=== PATIENT | female | born 1975 | race Native Hawaiian/Other Pacific Islander ===

== ENCOUNTER → 2019-09-13 | Outpatient (CLI) | payer BC | LOC: LABWHC1 15:13 | PROVIDERS: ATTEND Obstetrics & Gynecology | DX: Z34.81 Encounter for supervision of other normal pregnancy, first trimester (principal); Z3A.00 Weeks of gestation of pregnancy not specified | CPT/HCPCS: 36415; 84702 ==

== ENCOUNTER 2019-09-24 09:37 | Emergency (ER) | payer BC ==
[2019-09-24 10:06] VITALS: RESP 18
[2019-09-24] MEDS ORDERED: MORPHINE SULFATE 4 MG/ML SYRINGE IV STA (10:32)
[2019-09-24] MEDS ORDERED: SODIUM CHLORIDE 0.9% 1,000 ML IV ONE (10:32)
--- NOTE | 2019-09-24 10:47 | ED ---
General Adult HPI - General Chief complaint: Vaginal Bleeding Stated complaint: miscarriage/bleeding Time Seen by Provider: 09/24/19 10:15 Source: patient, RN notes reviewed, old records reviewed Mode of arrival: wheelchair Limitations: no limitations - History of Present Illness Initial comments: This is a 44-year-old female presents today with a miscarriage was started on Friday. Patient reports that she follow-up with her [employer], who told her that her fetus on ultrasound on Friday measured about 6 weeks when her last muscle. Stated her to be 11 weeks. She reports that she is a female. Patient states that she was told that they could offer her medication at that time to help further along the miscarriage however Patient declined this at that time. Patient states that she's had prolonged bleeding, swelling through multiple pads an hour complaining of severe cramping. Patient reports that the cramping and bleeding got worse on . Patient reports she's had a previous D&C for one for last miscarriages. Her [employer] is Dr. Whitmore. - Related Data Home Medications Medication Instructions Recorded Confirmed Citalopram Hydrobromide [CeleXA] 40 mg PO HS 09/24/19 09/24/19 Dextroamphetamine/Amphetamine 30 mg PO DAILY 09/24/19 09/24/19 [Adderall Xr] Folic Acid 1 mg PO HS 09/24/19 09/24/19 Ibuprofen [Motrin Ib] 400 mg PO ONCE 09/24/19 09/24/19 Allergies Allergy/AdvReac Type Severity Reaction Status Date / Time ciprofloxacin [From Cipro] Allergy Hallucinati Verified 09/24/19 10:54 ons Review of Systems ROS Statement: Those systems with pertinent positive or pertinent negative responses have been documented in the HPI. ROS Other: All systems not noted in ROS Statement are negative. Past Medical History Additional Past Medical History / Comment(s): Bleeding ulcer, iron infusions, History of Any Multi-Drug Resistant Organisms: None Reported Past Surgical History: Appendectomy Additional Past Surgical History / Comment(s): Breast mass removed both breast. Past Psychological History: ADD/ADHD, Anxiety, Depression Smoking Status: Current every day smoker Past Alcohol Use History: Occasional Past Drug Use History: None Reported General Exam - General Exam Comments Initial Comments: Pleasant 44-year-old female. mild to moderate discomfort with cramping. Limitations: no limitations Head exam: Present: atraumatic, normocephalic, normal inspection Eye exam: Present: normal appearance, PERRL, EOMI. Absent: scleral icterus, conjunctival injection, periorbital swelling ENT exam: Present: normal exam, mucous membranes moist Cardiovascular Exam: Present: regular rate, normal rhythm, normal heart sounds. Absent: systolic murmur, diastolic murmur, rubs, gallop, clicks GI/Abdominal exam: Present: soft, normal bowel sounds. Absent: distended, tenderness, guarding, rebound, rigid External exam: Present: normal external exam Speculum exam: Present: vaginal bleeding (moderate amount of fist sized clots. ). Absent: normal speculum exam Extremities exam: Present: normal inspection, full ROM, normal capillary refill. Absent: tenderness, pedal edema, joint swelling, calf tenderness Neurological exam: Present: alert, oriented X3, CN II-XII intact Course Vital Signs 09/24/19 09/24/19 10:02 13:27 Temperature 99.0 F 97.8 F Pulse Rate 99 75 Respiratory 18 18 Rate Blood Pressure 126/89 119/70 O2 Sat by Pulse 99 98 Oximetry - Reevaluation(s) Reevaluation #1: 09/24/19 12:54 Discussed the case with Dr. Whitmore. Recommended Patient in follow-up next week as there is nothing retained in her uterus at this time she is 6 expect to have further bleeding throughout the weekend. Discussed that we can discharge Patient with a short course of intermittent injury and pain medicine the meantime. The Patient will have a repeat CBC. All questions were answered. Medical Decision Making - Medical Decision Making 44-year-old female presents today with miscarriage, vaginal bleeding. Patient reports that she was seen by her [employer] earlier this week, had an ultrasound that showed a nonviable IUP. At this time Patient does have a moderate amount of bleeding noted vaginal vault. Hemoglobin is stable. At this time patient's case was discussed with on-call [employer] Dr. Whitmore and Dr. Davis. Recommended the Patient follow-up outpatient. Ultrasound shows no retained products of conception. Discussed unlikely needing D&C at this time. Patient is agreeable treatment plan will comply. Return parameters were discussed. - Lab Data Result diagrams: 09/24/19 10:44 09/24/19 10:44 Lab Results 09/24/19 09/24/19 09/24/19 Range/Units 10:44 10:44 10:44 WBC 10.7 H (3.8-10.6) k/uL RBC 4.30 (3.80-5.40) m/uL Hgb 13.5 (11.4-16.0) gm/dL Hct 39.7 (34.0-46.0) % MCV 92.3 (80.0-100.0) fL MCH 31.4 (25.0-35.0) pg MCHC 34.1 (31.0-37.0) g/dL RDW 12.1 (11.5-15.5) % Plt Count 282 (150-450) k/uL Neutrophils % 76 % Lymphocytes % 16 % Monocytes % 5 % Eosinophils % 1 % Basophils % 0 % Neutrophils # 8.1 H (1.3-7.7) k/uL Lymphocytes # 1.7 (1.0-4.8) k/uL Monocytes # 0.5 (0-1.0) k/uL Eosinophils # 0.1 (0-0.7) k/uL Basophils # 0.0 (0-0.2) k/uL Sodium 137 (137-145) mmol/L Potassium 4.3 (3.5-5.1) mmol/L Chloride 109 H (98-107) mmol/L Carbon Dioxide 19 L (22-30) mmol/L Anion Gap 9 mmol/L BUN 12 (7-17) mg/dL Creatinine 0.57 (0.52-1.04) mg/dL Est GFR (CKD-EPI)AfAm >90 (>60 ml/min/1.73 sqM) Est GFR (CKD-EPI)NonAf >90 (>60 ml/min/1.73 sqM) Glucose 89 (74-99) mg/dL Calcium 9.0 (8.4-10.2) mg/dL Total Bilirubin 0.5 (0.2-1.3) mg/dL AST 28 (14-36) U/L ALT 35 (9-52) U/L Alkaline Phosphatase 55 (38-126) U/L Total Protein 6.4 (6.3-8.2) g/dL Albumin 3.7 (3.5-5.0) g/dL HCG, Quant 7245.7 mIU/mL Blood Type O Positive Blood Type Recheck O Pos Bld Type Recheck Status No Antibody Screen NEGATIVE Spec Expiration Date 09/27/2019 - 9080 - Radiology Data Radiology results: report reviewed Findings consistent with spontaneous based off of patient's history to us to visualize and treated would be in the differential based on ultrasound findings only. Confirmed with hCG. No evidence of intrauterine . There is a fibroid measuring 5.2 x 4.9 x 4.8 cm. Disposition Clinical Impression: Complete miscarriage Disposition: HOME SELF-CARE Condition: Good Instructions (If sedation given, give patient instructions): Miscarriage (ED) Additional Instructions: Please use medication as discussed. Patient is advised to follow-up next week with [employer]'s partners. Recheck CBC at that time as well. Please follow up with family doctor if symptoms have not improved over the next two days. Please return to the emergency room if your symptoms increase or worsen or for any other concerns. Is patient prescribed a controlled substance at d/c from ED?: No Referrals: Christine Reyes DO [Primary Care Provider] - 1-2 days Mario Pelayo DO [Doctor of Osteopathic Medicine] - 1-2 days Time of Disposition: 12:55
[2019-09-24 10:53] LABS: Basophils % (A) 0 %; Eosinophils # (A) 0.1 k/uL (0-0.7); Eosinophils % (A) 1 %; HCT 39.7 % (34.0-46.0); HGB 13.5 gm/dL (11.4-16.0); Lymphocytes # (A) 1.7 k/uL (1.0-4.8); Lymphocytes % (A) 16 %; MCH 31.4 pg (25.0-35.0); MCHC 34.1 g/dL (31.0-37.0); MCV 92.3 fL (80.0-100.0); Mean Platelet Volume 6.7; Monocytes # (A) 0.5 k/uL (0-1.0); Monocytes % (A) 5 %; Neutrophils # (A) 8.1 k/uL (1.3-7.7); Neutrophils % (A) 76 %; Platelet Count 282 k/uL (150-450); RDW 12.1 % (11.5-15.5); WBC 10.7 k/uL (3.8-10.6)
[2019-09-24 11:09] LABS: ALT 35 U/L (9-52); AST 28 U/L (14-36); African American GFR (CKD) >90 (>60 ml/min/1.73 sqM); Albumin 3.7 g/dL (3.5-5.0); Alkaline Phosphatase 55 U/L (38-126); Anion Gap 9 mmol/L; Blood Urea Nitrogen 12 mg/dL (7-17); Carbon Dioxide 19 mmol/L (22-30); Chloride 109 mmol/L (98-107); Glucose 89 mg/dL (74-99); Potassium 4.3 mmol/L (3.5-5.1); Sodium 137 mmol/L (137-145); Total Bilirubin 0.5 mg/dL (0.2-1.3); Total Protein 6.4 g/dL (6.3-8.2)
[2019-09-24 11:25] LABS: HCG,Quantitative Serum 7245.7 mIU/mL
--- NOTE | 2019-09-24 11:32 | US ---
EXAMINATION TYPE: Transabdominal DATE OF EXAM: 09/24/2019 11:15 AM COMPARISON: NONE CLINICAL HISTORY: pain. heavy bleeding, miscarriage. Gestational sac seen few days earlier. Positive beta hCG test. EXAM PERFORMED: Transabdominal (TA) EXAM MEASUREMENTS: GESTATIONAL AGE / DATING Physician Established: Not yet established Dates by LMP: 06/23/2019 (13 weeks/2 days) EDC: 03/29/2020 Dates by First Scan: No previous this is first scan Dates by Current Scan for: No sign of an IUP MATERNAL ANATOMY Uterus: 12.5 x 6.9 x 9.3 cm Right Ovary: 3.4 x 2.6 x 2.2 cm Left Ovary: 2.7 x 1.9 x 2.4 cm Post CDS / Adnexa: wnl Presence of free fluid: none GESTATION / SURVEY Patient states history of ultrasound last Friday, September [address] Pel[address]o's office. There was a sa c seen measuring 6 weeks. Patient has been having bleeding and believed she miscarried. Today she beg an hemorrhaging. Date of LMP: 06/23/2019 Beta HcG (if available): not available There is a fibroid left uterus measures 5.2 x 4.9 x 4.8 cm. Endo measures 1.9 cm. No ultrasound evide nce for increased vascularity. No sign of an IUP. Heterogeneous anteverted uterus with thickened endometrium up to 19 mm. No gestational sac, yolk sac, pole and current study. Prominent left anterior subserosal fibroid. No free fluid in pelvic cu l-de-sac. Both ovaries are seen. No suspicious extraovarian adnexal masses are identified bilaterally. IMPRESSION: Findings consistent spontaneous based on patient history, too early to visualize intrauterine would be in differential based on ultrasound findings only. Confirm with seri al beta-hCG monitoring.
[2019-09-24] MEDS ORDERED: traMADol 50 MG STARTER PACK 3 TAB BTL PO STA (12:56)
[2019-09-24 13:31] VITALS: BP 119/70; PULSE 75; TEMP 97.8
== END 2019-09-24 13:31 | disposition home or self-care (01) ==
LOC: EC 09:37
DX: O03.9 Complete or unspecified spontaneous abortion without complication (principal); O99.341 Other mental disorders complicating pregnancy, first trimester; F32.9 Major depressive disorder, single episode, unspecified; F41.9 Anxiety disorder, unspecified; F90.9 Attention-deficit hyperactivity disorder, unspecified type; O99.331 Smoking (tobacco) complicating pregnancy, first trimester; F17.200 Nicotine dependence, unspecified, uncomplicated; Z88.1 Allergy status to other antibiotic agents; Z79.899 Other long term (current) drug therapy; Z86.2 Personal history of diseases of the blood and blood-forming organs and certain disorders involving the immune mechanism; Z90.49 Acquired absence of other specified parts of digestive tract; Z3A.11 11 weeks gestation of pregnancy
CPT/HCPCS: 36415; 86900; 86901; 80053; 85025; 86850; 84702; 76801; 99284; 96374; 96361; J2270